=== PATIENT | female | born 1980 | race Caucasian/White ===

== ENCOUNTER 2023-06-24 12:14 | Emergency (ER) | payer BC, SELFPAY ==
--- NOTE | ~2023-06-24 | CT_ITS ---
TEMPORAL BONE CT WITHOUT CONTRAST INDICATION: Post auricular pain and swelling. COMPARISON: None available. TECHNIQUE: A multidetector CT acquisition of the temporal bones is obtained without contrast. Multiplanar reformats are acquired and utilized for image interpretation. This CT examination was performed using dose optimization techniques as appropriate, variously including the following: *Automated exposure control *Adjustment of mA and/or kV according to patient size (this includes techniques or standardized protocols for targeted exams where dose is matched to indication/reason for exam; i.e. extremities or head) *Use of iterative reconstruction technique FINDINGS: The mastoid air cells and the middle ear cavities are clear. No bony erosive changes. Inner ear structures including the cochlea, vestibules, and semicircular canals are normal. The vestibular aqueducts are not enlarged. There is no otospongiosis. The ossicular chains are intact bilaterally. There is right-sided retroauricular/inferoauricular soft tissue swelling and a possible focal right retro/inferoauricular collection measuring 1.1 cm that can be further assessed with ultrasound to exclude any drainable collection/abscess. There is focal cellulitis surrounding this area. Intracranial compartment not diagnostically assessed due to artifact. CT/CT mastoid IMPRESSION: - There is right-sided retroauricular/inferoauricular soft tissue swelling and a possible focal right retro/inferoauricular collection measuring 1.1 cm that can be further assessed with ultrasound to exclude any drainable collection/abscess. There is focal cellulitis surrounding this area. - The mastoid air cells and middle air cavities are clear. No bony erosive changes.
--- NOTE | 2023-06-24 12:48 | ED_ITS ---
HPI - General Adult General Chief complaint: Ear Problems Stated complaint: mass behind ear/ infection Time Seen by Provider: 06/24/23 14:55 Source: patient, RN notes reviewed and old records reviewed Mode of arrival: ambulatory History of Present Illness HPI narrative: 42-year-old female with no significant past medical history presenting to the ED complaining of painful lump behind right ear x 2 days. Admits pain radiates to right low neck/jaw line. Admits to recurrent otitis, last treated with Azithromycin about 3 weeks ago. Patient was evaluated at [facility] and sent to the ED to rule out mastoiditis. Reports associated right ear pain and drainage from ear. Denies hearing loss, fever/chills, sore throat, difficulty or inability to swallow Related Data Allergies Allergy/AdvReac Type Severity Reaction Status Date / Time ondansetron [From Zofran] Allergy Anaphylaxis Verified 06/24/23 12:51 Penicillins Allergy Unknown Verified 06/24/23 12:51 Review of Systems 2 Review of Systems: Constitutional: No Fever, No Chills ENT/Mouth: + Ear Pain, +ear drainage, No Nasal Congestion, No Sinus Pain, No Hoarseness, No sore throat, No Rhinorrhea, No Swallowing Difficulty Cardiovascular: No Chest Pain, No SOB Respiratory: No Cough Gastrointestinal: No Nausea, No Vomiting, No Abdominal pain Musculoskeletal: No joint pain, No Myalgias, No Joint Swelling Skin: + Skin Lesions, No rash Neuro: No Weakness Yes all other systems are reviewed and are negative Constitutional: Constitutional: Reports as per [facility] Past Medical History Attestation statement: The following information was validated with the patient. Source: old records reviewed Social History Social History Advance Directives: No Advance Directives Information Provided: No Physical Exam ED Vital Signs: Vital Signs - 24 hr 06/24/23 12:49 Temperature 98.6 F Pulse Rate 105 H Respiratory Rate 20 Blood Pressure 182/98 H Pulse Oximetry 99 Oxygen Delivery Method Room Air BMI result Body Mass Index 30.8 Const General: cooperative, healthy appearing and no acute distress Orientation/consciousness: patient oriented x3 Limitations: no limitations HENMT Other: Please refer to image above. Small abscess noted to posterior ear/mastoid with diffuse tenderness to palpation and +induration. No appreciable fluctuance. +ttp to right jaw. No trismus. No ear drainage. No pointing. Head: Yes normal to inspection and Yes atraumatic Ears: hearing grossly normal bilaterally, TM's normal bilaterally and mastoids normal on the right tender General nose exam: Normal external nose present Face and sinus: Yes normal facial exam Mouth: Normal oral and palatal mucosa present Throat: Yes posterior oropharynx normal, Yes tonsils normal, Yes uvula midline, No uvula laterally displaced and No uvular edema Eyes General: appearance normal, both eyes and all related structures EOM: EOMs intact bilaterally Neck Neck: Yes normal visual inspection and Yes no meningeal signs Resp Effort & Inspection: normal respiratory effort and no respiratory distress Cardio Rate: regular rate Skin Rashes: no rashes Wounds: no wounds Neuro General: patient oriented x3, tone normal and no meningeal signs Cranial nerves: Yes CN's II-XII intact bilaterally Gait exam (Neuro): Normal gait present Extrem General: Yes normal to inspection Course Course Course Narrative: This is an RME: Additional HPI, ROS, PE not included below will be deferred to primary provider. Patient is a 42-year-old female who presents emergency department from urgent care to rule out mastoiditis. She has right posterior ear pain, they advised her that she has an abscess, referral from urgent care indicating significant pain over the mastoid upon palpation. She is currently traveling here from [place], reports history of recurrent otitis media, last treated with azithromycin approximately 3 weeks ago. States that last night she had small amount of swelling and pain in the ER, today with progressive swelling. Plan: labs, CT -1543--no leukocytosis. Labs otherwise reassuring CT mastoid IMPRESSION: - There is right-sided retroauricular/inferoauricular soft tissue swelling and a possible focal right retro/inferoauricular collection measuring 1.1 cm that can be further assessed with ultrasound to exclude any drainable collection/abscess. There is focal cellulitis surrounding this area. - The mastoid air cells and middle air cavities are clear. No bony erosive changes. > will perform needle aspiration Results discussed with patient including worrisome signs and symptoms and strict return precautions, and when to return to the emergency department. They verbalized understanding and feel safe for discharge at this time. Procedures Abscess I/D Site: scalp Side (if applicable): right Local Anesthetic: lidocaine 1% Amount of anesthesia used (mL): 0.5 Technique: needle aspiration Amount of fluid expressed (mL): 0.5 Irrigation: No Packing used?: none Medical Decision Making Medical Decision Making [facility] Narrative: 42-year-old female with no significant past medical history presenting to the ED complaining of painful lump behind right ear x 2 days. On exam tachycardic likely from pain, tearful, NAD, nontoxic appearing, physical exam as above, please refer to image. Appreciable abscess/cellulitis with mastoid tenderness. TMs WNL. Concern for abscess/cellulitis and otitis or mastoiditis. Low suspicion for chronic otitis externa Plan: Labs and CT ordered in triage Please refer to course for remaining clinical decision making, interpretation of labs/imaging results, and discussions with consultants and/or family members. Differential Diagnosis Differential Diagnoses: The differential diagnosis associated with the presentation includes As above Admission/Observation Consideration of admission/observation: Escalation of care including admission/observation considered Lab Data [facility] Lab Attestation statement: I reviewed the patient's lab results. 06/24/23 13:25 06/24/23 13:25 Labs: Lab Results 06/24/23 Range/Units 13:25 WBC 7.4 (4.8-10.8) X10*3/uL RBC 4.44 (4.20-5.50) X10*6/uL Hgb 13.9 (12.0-16.0) g/dl Hct 40.4 (37.0-47.0) % MCV 91.0 (80.0-98.0) fL MCH 31.3 (27.0-33.0) pg MCHC 34.4 (31.0-35.0) g/dl RDW 11.6 (11.0-16.0) % Plt Count 227 (160-400) X10*3/uL MPV 9.8 (9.4-12.3) fL Immature Gran % (Auto) 0.3 (0.0-0.4) % Neut % (Auto) 59.2 (45-73) % Lymph % (Auto) 30.5 (20-40) % Rutherford % (Auto) 7.7 (2-11) % Eos % (Auto) 1.8 (0-4) % Baso % (Auto) 0.5 (0-2) % Lymph # (Auto) 2.3 (1.2-4.9) X10*3/uL [place] # (Auto) 0.6 (0.1-1.2) X10*3/uL Eos # (Auto) 0.1 (0.0-0.4) X10*3/uL Baso # (Auto) 0.0 (0.0-0.2) X10*3/uL Abs Immat Gran (auto) 0.02 (0.00-0.03) X10*3/uL Absolute Neuts (auto) 4.4 (2.0-8.3) x10*3/uL Absolute Nucleated RBC 0.000 (0.0-0.012) X10*3/uL Nucleated RBC % (auto) 0.0 (0.0-0.2) /100WBC Sodium 142 (135-145) mmol/L Potassium 3.3 (3.3-5.1) mmol/L Chloride 109 H (96-108) mmol/L Carbon Dioxide 23 (22-29) mmol/L Anion Gap 13 (12-20) BUN 13 (9-16) mg/dL Creatinine 0.76 (0.5-1.4) mg/dL Estim Creat Clear Calc 102.1 Estimated GFR > 60 Random Glucose 77 (60-115) mg/dL Calcium 9.2 (8.4-10.2) mg/dL Independent Interpretation I performed an independent interpretation of an: CT Scan Radiology Impression Discussion of test interpretation with radiology: I have reviewed the radiologist's reading. External Record Review External record reviewed: Inpatient record, Office record, Outpatient record, Prior outpatient labs, Prior outpatient radiology, Primary care record and Outside ED record Tests considered The following testing was considered but not selected: As above Prescription Management I considered prescription management with: Pain Medication and Antibiotic Discharge Plan Discharge Clinical Impression: Abscess, Cellulitis Patient Disposition: Home, Self-Care
[2023-06-24 12:49] VITALS: BP 182/98; PULSE 105; RESP 20; TEMP 37; O2SAT 99; BMI 30.8
[2023-06-24 13:30] LABS: MANUAL DIFF FLAG NO
[2023-06-24 13:31] LABS: Basophils Percent Auto 0.5 % (0-2); Eosinophils Absolute Auto 0.1 X10*3/uL (0.0-0.4); Eosinophils Percent Auto 1.8 % (0-4); Hematocrit 40.4 % (37.0-47.0); Hemoglobin 13.9 g/dl (12.0-16.0); Imm Gran Abs Auto 0.02 X10*3/uL (0.00-0.03); Imm Gran Pct Auto 0.3 % (0.0-0.4); Lymphocytes Absolute Auto 2.3 X10*3/uL (1.2-4.9); Lymphocytes Percent Auto 30.5 % (20-40); Mean Corpuscular HGB Conc 34.4 g/dl (31.0-35.0); Mean Corpuscular Hemoglobin 31.3 pg (27.0-33.0); Mean Platelet Volume 9.8 fL (9.4-12.3); Monocytes Absolute Auto 0.6 X10*3/uL (0.1-1.2); Monocytes Percent Auto 7.7 % (2-11); Neutrophils Absolute Auto 4.4 x10*3/uL (2.0-8.3); Neutrophils Percent Auto 59.2 % (45-73); Platelet Count 227 X10*3/uL (160-400); Red Blood Count 4.44 X10*6/uL (4.20-5.50); Red Cell Distribution Width 11.6 % (11.0-16.0); White Blood Count 7.4 X10*3/uL (4.8-10.8)
[2023-06-24 13:43] LABS: Anion Gap 13 (12-20); Blood Urea Nitrogen 13 mg/dL (9-16); Calcium 9.2 mg/dL (8.4-10.2); Carbon Dioxide 23 mmol/L (22-29); Chloride 109 mmol/L (96-108); Creatinine Clr Calc Pharmacy 102.1; Estimated Glomerular Filt Rate > 60; Glucose Random 77 mg/dL (60-115); Potassium 3.3 mmol/L (3.3-5.1); Sodium 142 mmol/L (135-145)
[2023-06-24] MEDS: Lidocaine HCl 1 % MPF 2 ML VIAL INFILTRATI (16:16)
== END 2023-06-24 16:18 | disposition home or self-care (01) ==
PROVIDERS: Nurse Practitioner Family; Emergency Provider Emergency Medicine Emergency Medical Services
DX: L02.811 Cutaneous abscess of head [any part, except face] (principal); H60.11 Cellulitis of right external ear; H92.01 Otalgia, right ear; Z79.899 Other long term (current) drug therapy
CPT/HCPCS: 10060; 36415; 70481; 80048; 85025; 99282; 99284

== ENCOUNTER 2023-06-26 07:29 | Emergency (ER) | payer BC, SELFPAY ==
[2023-06-26 07:42] VITALS: BP 135/79; PULSE 65; RESP 18; TEMP 36.7; O2SAT 99; BMI 30.8
--- NOTE | 2023-06-26 08:17 | ED.SKABFB ---
HPI - Skin/Abscess/Foreign Bdy General Chief complaint: Skin/Abscess/Foreign Body Stated complaint: Abscess behind ear Time Seen by Provider: 06/26/23 07:45 Source: patient and RN notes reviewed Mode of arrival: ambulatory Limitations: no limitations History of Present Illness HPI narrative: This is a 42-year-old female, with a history of asthma, presenting to the emergency department with complaints of worsening abscess behind right ear. Patient states that approximately 5 days ago she noticed some redness and pain behind her right ear. This had increased until she was seen at [facility] 2 days ago where she had a needle aspiration. She was discharged on Keflex and doxycycline which she has been taking as well as using warm compresses however the areas only increasing in pain and swelling. She denies any fevers or chills. She states that she has had ongoing otitis media for the last 4 years, who is anticipating on seeing ENT, however states that she is in the area for work until July. Patient is unsure when her last tetanus shot was. Denies any other complaints or concerns at this time. MD complaint: abscess/boil Onset (ago): day(s) Tetanus up to date: no Quality: sharp Pain Consistency: constant Relieving factors: none Exacerbating factors: none Context: none Associated symptoms: denies other symptoms Treatments prior to arrival: antibiotic Related Data Previous Rx's Medication Instructions Recorded cephalexin 500 mg capsule 500 mg PO QID 7 days #28 caps 06/24/23 doxycycline hyclate 100 mg tablet 100 mg PO BID 7 days #14 tabs 06/24/23 fluconazole 150 mg tablet 150 mg PO Q3D 2 doses #2 tabs 06/24/23 Allergies Allergy/AdvReac Type Severity Reaction Status Date / Time ondansetron [From Zofran] Allergy Anaphylaxis Verified 06/26/23 07:50 Penicillins Allergy Unknown Verified 06/26/23 07:50 Review of Systems Review of Systems: Yes all other systems are reviewed and are negative PMFSH Past Medical History Attestation statement: The following information was validated with the patient. Social History Social History Advance Directives: No Advance Directives Information Provided: Yes Physical Exam Vital Signs: Vital Signs: Last Vital Signs Temp 98.0 F 06/26/23 07:42 Pulse 65 06/26/23 07:42 Resp 18 06/26/23 07:42 BP 135/79 06/26/23 07:42 Pulse Ox 99 06/26/23 07:42 O2 Del Method Room Air 06/26/23 07:42 BMI result Body Mass Index 30.8 Const: Other: General: Awake, alert, and oriented X3. No acute distress. HEENT: Normal to inspection, bilateral TMs nonerythematous, nonedematous, mastoid is nontender. CVS: Normal heart rate and rhythm. Pulses normal. Respiratory: No respiratory distress Skin: Please refer to image below. Abscess noted to posterior ear/mastoid with induration and fluctuance. No tenderness to the right jaw. No trismus, no ear drainage. Extremities: Normal to inspection Neuro: Oriented X 3. No motor deficit. No sensory deficit. No meningeal signs. Course Reevaluation(s) Reevaluation #1: Abscess was incised, moderate amount of purulence drainage was expressed. Patient tolerated procedure well, see procedure note for further details. Patient is already on Keflex and doxycycline. Advised to continue taking this. Advised to keep wick in place for the next 48 hours if possible. Advised to return for wound check. Given return precautions. Patient understands and agrees with plan. Patient stable for discharge Time: 09:34 Medications Administered Discontinued Medications Generic Name Dose Route Start Last Admin Trade Name Freq PRN Reason Stop Dose Admin Acetaminophen 975 mg 06/26/23 08:13 06/26/23 08:28 Acetaminophen 325 Mg Tablet PO 06/26/23 08:14 975 mg ONCE ONE Administration Diphtheria/Tetanus/Acell Pertussis 0.5 ml 06/26/23 08:20 06/26/23 08:41 Diphth,Pertus(Acell),Tet Adult 0.5 Ml Syringe IM 06/26/23 08:21 0.5 ml .ONCE ONE Administration Medical Decision Making Medical Decision Making [facility] Narrative: This is a 42-year-old female, with a history of asthma, presenting to the emergency department complaining of painful lump behind her ear for the last 5 days. He was seen on June 24, 2023 where she had a needle aspiration after having a CT mastoid which revealed right-sided retro auricle/inferior or call soft tissue swelling and possible collection, no mastoid air cells or bony erosive changes noted.. She was discharged on doxycycline and Keflex but states that the area is only increasing in swelling. On examination, patient has fluctuant, indurated abscess noted behind right ear. I discussed this case with my attending physician, Dr. Harding, who came and evaluated the patient. An ultrasound was performed revealing a superficial collected will abscess requiring incision and drainage. He does not believe that we need to repeat CT imaging at this time. Incision and drainage will be performed. Plan: Tylenol 1 g p.o. Differential Diagnosis Differential Diagnoses: The differential diagnosis associated with the presentation includes Abscess, cellulitis, cyst Procedures Procedure Narrative Procedure Narrative: Bedside ultrasound performed by my attending physician, Dr. Harding, superficial abscess noted without any profound loculations. Abscess I/D Site: other (behind ear) Side (if applicable): right Local Anesthetic: lidocaine 1% Amount of anesthesia used (mL): 2.5 Technique: incised with blade Amount of fluid expressed (mL): 4 Sent for culture/gram staining?: No Irrigation: No Packing used?: iodoform Discharge Plan Discharge Clinical Impression: Abscess of skin or subcutaneous tissue Patient Disposition: Home, Self-Care Instructions: Abscess (ED), Incision and Drainage (ED) Additional Instructions: You presented to the emergency department for an abscess behind your right ear. We were able to emma this abscess. We packed the abscess with packing. Please removed packing in 48 hours. If the packing falls out on its own, this is okay. You do not need to return if this happens. You may return and 48-72 hours to ensure that the wound is healing appropriately. You can not keep the dressing on this area for the next 24 hours. Please remove after 24 hours. Keep area covered until the packing is removed. We updated your tdap vaccination in the department today Continue to apply warm compresses to the area and continue taking previously prescribed Keflex and doxycycline. You may continue taking ibuprofen and Tylenol as needed for pain If any new or worsening symptoms occur including but not limited to fevers, chills, worsening pain, swelling, please return for re-evaluation. Prescriptions: No Action cephalexin 500 mg capsule 500 mg PO QID 7 Days Qty: 28 0RF doxycycline hyclate 100 mg tablet 100 mg PO BID 7 Days Qty: 14 0RF fluconazole 150 mg tablet 150 mg PO Q3D Qty: 2 0RF Rx Instructions: may repeat second dose 72 hrs after first dose if symptoms persist
[2023-06-26] MEDS: Acetaminophen 325 MG TABLET 975 MG PO (08:28)
[2023-06-26] MEDS: Diphth,Pertus(ACell),Tet Adult 0.5 ML SYRINGE IM (08:41)
--- NOTE | 2023-06-26 08:44 | PC.NURSE ---
pt comes to the ed with c/o abscess behind her right ear. she was seen here 2 days ago, the abscess was drained and she was d/c'd on po doxy and keflex. the abscess is now bigger than it was before.
--- NOTE | 2023-06-26 09:14 | PC.NURSE ---
TDAP given L Deltoid, pt tolerated well. Lido vial removed and given to the provider. care of this pt handed over to oncoming nurse.
[2023-06-26] MEDS: Lidocaine HCl 1 % MPF 5 ML VIAL SUBCUT (09:43)
== END 2023-06-26 09:53 | disposition home or self-care (01) ==
PROVIDERS: Emergency Provider Emergency Medicine
DX: H70.001 Acute mastoiditis without complications, right ear (principal)
CPT/HCPCS: 10060; 90471; 90715; 99283; 99284